=== PATIENT | male | born 1965 | race Caucasian/White ===

== ENCOUNTER → 2021-01-11 | Outpatient (CLI) | payer MEDICARE, OTHER ==
[~2021-01-11] MED LIST: ADVAIR 100-501 EACH INH; ALBUTEROL1.25 MG/3 INH; ALBUTEROL2.5 MG/3 M INH; ALDACTONE 25MG25 MG PO; ASPIR 8181 MG PO; ATORVASTATIN CA20 MG PO; CARVEDILOL12.5 MG PO; FLONASE ALLER15.8 ML; INCRUSE ELLI62.5 MCG INH; ISOSORBIDE MONO30 MG PO; LASIX40 MG PO; LISINOPRIL-HCT1 EACH PO; LISINOPRIL5 MG PO; LOPRESSOR 25 MG25 MG PO; MELOXICAM7.5 MG PO; METOPROLOL TART25 MG PO; SINGULAIR10 MG PO; SPIRONOLACTONE25 MG PO; XYZAL5 MG PO
== END ==
LOC: HEART 5 09:30
DX: I42.9 Cardiomyopathy, unspecified (principal); I25.10 Atherosclerotic heart disease of native coronary artery without angina pectoris; I50.9 Heart failure, unspecified
CPT/HCPCS: 78452; 93306; A9502; J2785

== ENCOUNTER → 2021-02-09 | Outpatient (CLI) | payer MEDICARE, OTHER ==
[2021-02-09 13:48] LABS: RED BLOOD COUNT 5.52 M/UL (4.20-5.50); WHITE BLOOD COUNT 8.9 K/UL (4.5-11.0)
[2021-02-09 14:24] LABS: BUN/CREATININE RATIO 10 (0-10)
== END ==
LOC: LAB 12:48
PROVIDERS: Internal Medicine Interventional Cardiology
DX: I42.9 Cardiomyopathy, unspecified (principal); I50.9 Heart failure, unspecified; I25.10 Atherosclerotic heart disease of native coronary artery without angina pectoris; I27.20 Pulmonary hypertension, unspecified; J44.9 Chronic obstructive pulmonary disease, unspecified
CPT/HCPCS: 36415; 80048; 85025; 85610; 85730

== ENCOUNTER → 2021-02-16 | Outpatient (CLI) | payer MEDICARE | LOC: CATH 09:16 | DX: I25.118 Atherosclerotic heart disease of native coronary artery with other forms of angina pectoris (principal); I42.9 Cardiomyopathy, unspecified; I11.0 Hypertensive heart disease with heart failure; I50.9 Heart failure, unspecified; I27.20 Pulmonary hypertension, unspecified; F17.210 Nicotine dependence, cigarettes, uncomplicated; Z79.82 Long term (current) use of aspirin; Z79.899 Other long term (current) drug therapy | CPT/HCPCS: 99152; C1769; C1894; J1644; J2250; J3010; J7030; Q9967 ==

== ENCOUNTER → 2021-03-07 | Outpatient (CLI) | payer MEDICARE | LOC: HEART 5 10:14 | DX: J44.9 Chronic obstructive pulmonary disease, unspecified (principal); R06.02 Shortness of breath; G47.33 Obstructive sleep apnea (adult) (pediatric) | CPT/HCPCS: 94060; 94729 ==

== ENCOUNTER → 2021-03-17 | Outpatient (CLI) | payer MEDICARE, OTHER | LOC: SLEEP 10:41 | DX: G47.33 Obstructive sleep apnea (adult) (pediatric) (principal) | CPT/HCPCS: 95810 ==

== ENCOUNTER → 2021-03-28 | Outpatient (CLI) | payer MEDICARE | LOC: KOH-I 12:54 | DX: F17.210 Nicotine dependence, cigarettes, uncomplicated (principal) | CPT/HCPCS: 71271 ==

== ENCOUNTER → 2021-11-05 | Outpatient (CLI) | payer MEDICARE, OTHER | LOC: HEART 5 14:54 | DX: I11.0 Hypertensive heart disease with heart failure (principal); I50.9 Heart failure, unspecified; I27.20 Pulmonary hypertension, unspecified; J44.9 Chronic obstructive pulmonary disease, unspecified; Z72.0 Tobacco use | CPT/HCPCS: 93306 ==

== ENCOUNTER 2022-01-25 20:51 | Emergency (ER) | payer OTHER, MEDICARE ==
[2022-01-26] MEDS ORDERED: IBUPROFEN600 MG PO (01:49)
[2022-01-26] MEDS ORDERED: NORFLEX 100 MG100 MG PO (01:49)
== END 2022-01-26 02:19 | disposition home or self-care (01) ==
LOC: ER1 20:51
DX: S20.211A Contusion of right front wall of thorax, initial encounter (principal); S00.01XA Abrasion of scalp, initial encounter; S40.211A Abrasion of right shoulder, initial encounter; S50.811A Abrasion of right forearm, initial encounter; S30.811A Abrasion of abdominal wall, initial encounter; S80.212A Abrasion, left knee, initial encounter; V47.5XXA Car driver injured in collision with fixed or stationary object in traffic accident, initial encounter; Y92.410 Unspecified street and highway as the place of occurrence of the external cause
CPT/HCPCS: 70450; 71045; 71260; 72125; 73030; 73090; 73564; 99284; Q9967